=== PATIENT | female | born 1990 | race Caucasian/White ===

== ENCOUNTER 2017-12-31 10:54 | Emergency (ER) | payer OTHER ==
[~2017-12-31] VITALS: Ht 160 cm; Wt 49.9 kg
[~2017-12-31 10:54] MED LIST: ALPRAZOLAM 0.0.25 M1 PO; BIRTH CONTROL PO; CIPRO500 MG PO; CLONAZEPAM 0.50.5 M1 PO; FLEXERIL PO; HYDROCODON-ACE1 EAC7 PO; HYDROCODONE-AP1 EAC6 PO; LYRICA 50 MG50 MG; MOBIC15 MG PO; NORCO 5-325 TA1 EAC1 PO; ONDANSETRON HCL4 M2 PO; PERCOCET 5-3251 EACH PO; PRILOSEC40 MG PO; PROTONIX40 M4 PO; ZOFRAN ODT4 MG DISSOLVE; ZOFRAN ODT4 MG PO; ZOFRAN4 MG PO
[2017-12-31 11:08] LABS: URINE BILIRUBIN NEGATIVE (Negative); URINE BLOOD NEGATIVE (Negative); URINE CLARITY CLEAR; URINE COLOR YELLOW; URINE GLUCOSE-RANDOM 1+ (Negative); URINE KETONES NEGATIVE (Negative); URINE LEUKOCYTES-REFLEX NEGATIVE (Negative); URINE NITRITE-REFLEX NEGATIVE (Negative); URINE PROTEIN TRACE (Negative); URINE UROBILINOGEN 0.2 E.U./dl (0.2-1.0)
[2017-12-31] MEDS ORDERED: BENADRYL25 MG PO (11:17)
[2017-12-31] MEDS ORDERED: TYLENOL325 MG PO (11:17)
[2017-12-31 11:27] LABS: ABSOLUTE EOSINOPHILS 0.1 thou/uL (0.0-0.7); ABSOLUTE LYMPHOCYTES 1.8 thou/uL (0.8-5.3); ABSOLUTE MONOCYTES 0.5 thou/uL (0.0-1.2); ABSOLUTE NEUTROPHILS 6.7 thou/uL (1.6-8.1); BASOPHILS 0.4 %; HEMATOCRIT 38.7 % (37.0-47.0); HEMOGLOBIN 13.4 gm/dL (12.0-15.0); MCH 31.8 pg (26.0-34.0); MCHC 34.8 g/dL (28.0-37.0); MCV 91.5 fL (80.0-100.0); MONOCYTES 5.3 %; MPV 7.8 fl. (7.2-11.1); NUCLEATED RBCS 0 /100WBC; PLATELET COUNT* 171 thou/uL (150-400); POLYS 73.3 %; RBC 4.23 mil/uL (4.20-5.00); WBC 9.1 thou/uL (4.0-11.0)
[2017-12-31 11:38] LABS: CALCIUM 8.9 mg/dL (8.5-10.1); CREATININE 0.6 mg/dL (0.6-1.3); POTASSIUM 3.3 mmol/L (3.5-5.1)
[2017-12-31 11:43] LABS: ALBUMIN 3.7 g/dL (3.4-5.0); TOTAL BILIRUBIN 0.3 mg/dL (<0.1-1.0); TOTAL PROTEIN 6.7 g/dL (6.4-8.2)
[2017-12-31 11:58] LABS: AMP/METHAMP Negative (Negative); BARBITURATES Negative (Negative); BENZODIAZEPINES Negative (Negative); COCAINE Negative (Negative); METHADONE Negative (Negative); OPIATES Negative (Negative); PCP Negative (Negative); THC Negative (Negative)
[2017-12-31 13:40] VITALS: BP 123/82
== END 2017-12-31 13:41 | disposition home or self-care (01) ==
LOC: M.ERS 10:54
PROVIDERS: Physician Assistant
DX: O26.891 Other specified pregnancy related conditions, first trimester (principal); R10.30 Lower abdominal pain, unspecified; O99.331 Smoking (tobacco) complicating pregnancy, first trimester; O99.341 Other mental disorders complicating pregnancy, first trimester; F41.8 Other specified anxiety disorders; Z3A.09 9 weeks gestation of pregnancy; Z88.6 Allergy status to analgesic agent; Z88.8 Allergy status to other drugs, medicaments and biological substances

== ENCOUNTER 2018-01-03 15:00 | Emergency (ER) | payer OTHER ==
[~2018-01-03] VITALS: Ht 160 cm; Wt 49.9 kg
[~2018-01-03 15:00] MED LIST changes: +BENADRYL25 MG PO; +TYLENOL325 MG PO
[2018-01-03] MEDS ORDERED: NITROFURANTOIN100 MG PO (15:19)
[2018-01-03 15:44] LABS: URINE BILIRUBIN NEGATIVE (Negative); URINE BLOOD NEGATIVE (Negative); URINE CLARITY CLEAR; URINE COLOR YELLOW; URINE GLUCOSE-RANDOM NEGATIVE (Negative); URINE KETONES NEGATIVE (Negative); URINE LEUKOCYTES-REFLEX NEGATIVE (Negative); URINE NITRITE-REFLEX NEGATIVE (Negative); URINE PROTEIN NEGATIVE (Negative); URINE SPECIFIC GRAVITY >= 1.030 (1.005-1.030); URINE UROBILINOGEN 0.2 E.U./dl (0.2-1.0)
[2018-01-03 15:57] LABS: ABSOLUTE EOSINOPHILS 0.1 thou/uL (0.0-0.7); ABSOLUTE LYMPHOCYTES 2.2 thou/uL (0.8-5.3); ABSOLUTE MONOCYTES 0.5 thou/uL (0.0-1.2); ABSOLUTE NEUTROPHILS 6.8 thou/uL (1.6-8.1); BASOPHILS 0.3 %; EOSINOPHILS 1.1 %; HEMOGLOBIN 13.3 gm/dL (12.0-15.0); LYMPHOCYTES 22.6 %; MCH 31.3 pg (26.0-34.0); MCHC 34.1 g/dL (28.0-37.0); MCV 91.7 fL (80.0-100.0); MONOCYTES 5.1 %; MPV 7.7 fl. (7.2-11.1); NUCLEATED RBCS 0 /100WBC; PLATELET COUNT* 173 thou/uL (150-400); POLYS 70.9 %; RBC 4.26 mil/uL (4.20-5.00); RDW-CV 12.9 % (10.5-14.5); WBC 9.6 thou/uL (4.0-11.0)
[2018-01-03 16:04] LABS: CALCIUM 8.7 mg/dL (8.5-10.1); CREATININE 0.5 mg/dL (0.6-1.3); POTASSIUM 3.6 mmol/L (3.5-5.1)
[2018-01-03 16:08] LABS: ALBUMIN 3.6 g/dL (3.4-5.0); TOTAL BILIRUBIN 0.1 mg/dL (<0.1-1.0); TOTAL PROTEIN 6.7 g/dL (6.4-8.2)
[2018-01-03 18:01] VITALS: BP 110/69
== END 2018-01-03 18:02 | disposition home or self-care (01) ==
LOC: M.ERS 15:00
PROVIDERS: Physician Assistant
DX: O20.0 Threatened abortion (principal); M79.7 Fibromyalgia; F41.9 Anxiety disorder, unspecified; O99.331 Smoking (tobacco) complicating pregnancy, first trimester; Z88.6 Allergy status to analgesic agent; Z88.8 Allergy status to other drugs, medicaments and biological substances; Z3A.09 9 weeks gestation of pregnancy

== ENCOUNTER 2018-01-26 15:12 | Emergency (ER) | payer OTHER ==
[~2018-01-26] VITALS: Ht 160 cm; Wt 51.3 kg
[~2018-01-26 15:12] MED LIST changes: +NITROFURANTOIN100 MG PO
[2018-01-26] MEDS ORDERED: NORCO 5-325 TA1 EACH PO (15:34)
[2018-01-26 15:57] LABS: URINE BILIRUBIN NEGATIVE (Negative); URINE BLOOD NEGATIVE (Negative); URINE CLARITY CLEAR; URINE COLOR YELLOW; URINE GLUCOSE-RANDOM TRACE (Negative); URINE KETONES NEGATIVE (Negative); URINE LEUKOCYTES-REFLEX NEGATIVE (Negative); URINE NITRITE-REFLEX NEGATIVE (Negative); URINE PROTEIN NEGATIVE (Negative); URINE SPECIFIC GRAVITY 1.025 (1.005-1.030); URINE UROBILINOGEN 0.2 E.U./dl (0.2-1.0)
[2018-01-26 16:02] LABS: ABSOLUTE EOSINOPHILS 0.1 thou/uL (0.0-0.7); ABSOLUTE LYMPHOCYTES 2.5 thou/uL (0.8-5.3); ABSOLUTE MONOCYTES 0.5 thou/uL (0.0-1.2); ABSOLUTE NEUTROPHILS 6.1 thou/uL (1.6-8.1); BASOPHILS 0.3 %; EOSINOPHILS 1.5 %; HEMATOCRIT 36.5 % (37.0-47.0); HEMOGLOBIN 12.7 gm/dL (12.0-15.0); LYMPHOCYTES 26.7 %; MCH 32.1 pg (26.0-34.0); MCHC 34.7 g/dL (28.0-37.0); MCV 92.5 fL (80.0-100.0); MONOCYTES 5.5 %; MPV 7.9 fl. (7.2-11.1); NUCLEATED RBCS 0 /100WBC; PLATELET COUNT* 181 thou/uL (150-400); RBC 3.94 mil/uL (4.20-5.00); RDW-CV 12.9 % (10.5-14.5); WBC 9.2 thou/uL (4.0-11.0)
[2018-01-26 16:10] LABS: CALCIUM 8.5 mg/dL (8.5-10.1); CREATININE 0.5 mg/dL (0.6-1.3); POTASSIUM 3.7 mmol/L (3.5-5.1)
[2018-01-26 16:15] LABS: ALBUMIN 3.3 g/dL (3.4-5.0); TOTAL BILIRUBIN 0.2 mg/dL (<0.1-1.0); TOTAL PROTEIN 6.6 g/dL (6.4-8.2)
[2018-01-26 19:30] VITALS: BP 113/73
== END 2018-01-26 19:31 | disposition home or self-care (01) ==
LOC: M.ERS 15:12
PROVIDERS: Nurse Practitioner
DX: O26.891 Other specified pregnancy related conditions, first trimester (principal); R10.11 Right upper quadrant pain; R10.31 Right lower quadrant pain; M79.7 Fibromyalgia; F41.9 Anxiety disorder, unspecified; F17.210 Nicotine dependence, cigarettes, uncomplicated; Z90.89 Acquired absence of other organs; Z3A.13 13 weeks gestation of pregnancy; Z88.8 Allergy status to other drugs, medicaments and biological substances; Z88.6 Allergy status to analgesic agent

== ENCOUNTER → 2018-09-07 | Emergency (ER) | payer OTHER ==
[~2018-09-07] VITALS: Ht 160 cm; Wt 50.8 kg
[~2018-09-07] MED LIST changes: +HYDROXYCHLOROQ200 M1 PO; +LYRICA 50 MG50 MG PO; +NORCO 5-325 TA1 EACH PO; +OXYCONTIN10 M1 PO; +PROTONIX 20 MG20 M1 PO
[2018-09-07 18:50] LABS: URINE BILIRUBIN NEGATIVE (Negative); URINE BLOOD NEGATIVE (Negative); URINE CLARITY CLEAR; URINE COLOR YELLOW; URINE GLUCOSE-RANDOM NEGATIVE (Negative); URINE KETONES NEGATIVE (Negative); URINE LEUKOCYTES-REFLEX TRACE (Negative); URINE NITRITE-REFLEX NEGATIVE (Negative); URINE PROTEIN NEGATIVE (Negative); URINE SPECIFIC GRAVITY 1.025 (1.005-1.030); URINE UROBILINOGEN 0.2 E.U./dl (0.2-1.0)
[2018-09-07 19:01] VITALS: BP 0/0
[2018-09-07 19:02] LABS: CELLULAR CASTS 0-3 Few /LPF (None Seen); CRYSTALS None Seen /LPF (None Seen); SQUAMOUS 4-10 Moderate /LPF (0-3); URINE RBC 0-2 Rare /HPF (0-2); URINE WBC-REFLEX 0-5 Rare /HPF (0-5)
== END ==
LOC: M.ERS 18:09
PROVIDERS: Nurse Practitioner
DX: R10.32 Left lower quadrant pain (principal); R10.31 Right lower quadrant pain; F17.210 Nicotine dependence, cigarettes, uncomplicated; F41.9 Anxiety disorder, unspecified; N80.9 Endometriosis, unspecified; M79.7 Fibromyalgia; Z88.8 Allergy status to other drugs, medicaments and biological substances; Z88.6 Allergy status to analgesic agent; Z90.89 Acquired absence of other organs

== ENCOUNTER 2019-01-29 16:17 | Emergency (ER) | payer OTHER ==
[~2019-01-29] VITALS: Ht 157.5 cm; Wt 45.4 kg
[2019-01-29 16:40] VITALS: BP 107/55
[2019-01-29 17:35] LABS: ABSOLUTE EOSINOPHILS 0.6 thou/uL (0.0-0.7); ABSOLUTE LYMPHOCYTES 2.9 thou/uL (0.8-5.3); ABSOLUTE MONOCYTES 0.5 thou/uL (0.0-1.2); ABSOLUTE NEUTROPHILS 3.5 thou/uL (1.6-8.1); BASOPHILS 0.6 %; EOSINOPHILS 7.4 %; HEMATOCRIT 39.7 % (37.0-47.0); HEMOGLOBIN 13.6 gm/dL (12.0-15.0); MCH 31.1 pg (26.0-34.0); MCHC 34.1 g/dL (28.0-37.0); MCV 91.2 fL (80.0-100.0); MONOCYTES 6.9 %; MPV 7.5 fl. (7.2-11.1); NUCLEATED RBCS 0 /100WBC; PLATELET COUNT* 199 thou/uL (150-400); POLYS 47.1 %; RBC 4.36 mil/uL (4.20-5.00); RDW-CV 12.8 % (10.5-14.5); WBC 7.6 thou/uL (4.0-11.0)
[2019-01-29 17:46] LABS: ANION GAP 9 mmol/L (7-16); BUN 7 mg/dL (7-18); CALCIUM 8.7 mg/dL (8.5-10.1); CHLORIDE 107 mmol/L (98-107); CO2 27 mmol/L (21-32); CREATININE 0.7 mg/dL (0.6-1.3); GLUCOSE 80 mg/dL (70-99); POTASSIUM 3.6 mmol/L (3.5-5.1); SODIUM 143 mmol/L (136-145)
[2019-01-29 17:59] LABS: ALBUMIN 3.2 g/dL (3.4-5.0); ALKALINE PHOSPHATASE 95 U/L (46-116); MAGNESIUM 2.1 mg/dL (1.8-2.4); NT-PRO BRAIN NAT PEPTIDE 80 pg/mL (<300); SGOT 36 U/L (15-37); SGPT 45 U/L (30-65); TOTAL BILIRUBIN 0.2 mg/dL (<0.1-1.0); TOTAL PROTEIN 6.6 g/dL (6.4-8.2); TROPONIN-I LEVEL <0.06 ng/mL (<0.06)
[2019-01-29 19:08] LABS: ESR (SEDRATE) 5 mm/hr (0-20)
--- NOTE | 2019-01-29 19:12 | NUR ---
PT AGGITATED. REFUSED PAIN MEDICATION. REQUEST TO LEAVE AMA
[2019-01-29 19:22] VITALS: BP 107/55
--- NOTE | 2019-01-30 10:27 | EKG ---
[place] [address] ELECTROCARDIOGRAM REPORT Name: EVERETT TRACY Room: [facility]#: [id number] Admission: 01/29/19 Attend Phys: Discharge: 01/29/19 Date of : 89 Report #: [id number] THIS REPORT FOR: //name// [facility] ED Test Date: 2019-01-29 Test Time: 17:07:40 Pat Name: EVERETT TRACY Department: Room: [facility] Gender: F [employer]: MAXX : 1990 Requested By: Debbie Hernandez Order Number: [id number] MD: Murray Simons Measurements Intervals [place] Rate: 56 P: 72 ME: 147 QRS: 77 QRSD: 91 T: 85 QT: 518 QTc: 501 Interpretive Statements Sinus rhythm Nonspecific T abnormalities, lateral leads Prolonged QT interval No previous ECG available for comparison Electronically Signed On 01-30-2019 10:26:54 CDT by Murray Simons [email or web address] <ELECTRONICALLY SIGNED> By: Murray Simons MD, [facility] 01/30/19 1026 1706 06 Murray Simons MD, FACC /EPI
[2019-01-30] MEDS ORDERED: PREDNISONE50 MG PO (18:58)
== END 2019-01-29 19:22 | disposition left against medical advice (07) ==
LOC: M.ERS 16:17 → M.TBA-ER 18:58 → M.ERS 18:58 → M.TBA-ER 19:22
PROVIDERS: Personal Emergency Response Attendant
DX: M32.9 Systemic lupus erythematosus, unspecified (principal); F17.210 Nicotine dependence, cigarettes, uncomplicated; F41.9 Anxiety disorder, unspecified; N80.9 Endometriosis, unspecified; M79.7 Fibromyalgia; Z88.8 Allergy status to other drugs, medicaments and biological substances; Z88.6 Allergy status to analgesic agent; Z90.89 Acquired absence of other organs